=== PATIENT | male | born 1985 | race Caucasian/White ===

== ENCOUNTER → 2018-06-22 13:42 | Outpatient (CLI) | payer BC, SELFPAY ==
--- NOTE | 2018-06-22 | DI.CT.S_ITS ---
PROCEDURE: CT ABDOMEN WO/W CON INDICATIONS: RENAL INJURY TECHNIQUE: Optional 5 mm thick noncontrast images acquired from the diaphragm to the iliac crests. After the administration of intravenous contrast, 5 mm thick images again acquired from the diaphragm to the iliac crests in the arterial and urographic phases. 5 mm thick coronal and sagittal reformats were then acquired. For radiation dose reduction, the following was used: automated exposure control, adjustment of mA and/or kV according to patient size. COMPARISON: None. FINDINGS: Image quality: Excellent. Lung bases: There is a 3 mm nodule in the right major fissure.. Heart size is normal. Genitourinary: There are multifocal site lacerations and contusions of right kidney with a large perinephric hematoma. A fracture is noted traversing through the mid right kidney. There is no definitive contrast extravasation to suggest active bleeding. The left kidney is normal. Other solid organs: Liver is normal in size and enhancement. Gallbladder is normal. Biliary system is non dilated. Pancreas enhances normally. Spleen is normal in size and enhancement. No adrenal nodules. Peritoneum and bowel: Unenhanced bowel loops are normal in wall thickness and caliber. No free fluid or air. Nodes and vessels: No retroperitoneal or mesenteric adenopathy by size criteria. Aorta and inferior vena cava are normal in caliber. Bones: No suspicious bony lesions. No vertebral body compression fractures. Miscellaneous: No ventral hernias. IMPRESSION: 1. Right renal fracture with multi-focal lacerations and contusions. A large perinephric hematoma is present. No active extravasation of contrast to suggest active bleed. 2. Normal left kidney. 3. A 3 mm lung nodule in the right major fissure. Please see enclosed followup recommendation. Fleischner Society criteria for SOLID lung nodule followup. Nodule size (mm)Low-risk patientHigh-risk patient?4No follow-up neededFollow-up at 12 mo; if no change, no further follow-up>[id number] CT at 12 mo; if no change, no further follow-up needed.Initial follow-up CT at 6-12 mo, then 18-24 mo if no change. >6-8Initial follow-up CT at 6-12 mo, then 18-24 mo if no change. Initial follow-up CT at 3-6 mo, then 9-12 mo and 24 mo if no change. >8Follow-up CT at 3, 9, 24 mo. Or PET and/or biopsy.Same as for low-risk pts. Dictated by: Katelin Rivero M.D. on 06/22/2018 at 17:06 Transcribed by: FLORI on 06/22/2018 at 17:14 Approved by: Katelin Rivero M.D. on 06/23/2018 at 9:59
== END ==
PROVIDERS: PCP Family Medicine; Visit Provider Specialist
DX: S37.031A Laceration of right kidney, unspecified degree, initial encounter (principal); S37.011A Minor contusion of right kidney, initial encounter; R91.1 Solitary pulmonary nodule
CPT/HCPCS: 74170; Q9967

== ENCOUNTER → 2018-07-14 07:48 | Outpatient (CLI) | payer OTHER, SELFPAY ==
--- NOTE | 2018-07-14 | DI.CT.S_ITS ---
PROCEDURE: CT ABDOMEN WO/W CON INDICATIONS: RENAL INJURY - RIGHT SIDED TECHNIQUE: Optional 5 mm thick noncontrast images acquired from the diaphragm to the iliac crests. After the administration of intravenous contrast, 5 mm thick images again acquired from the diaphragm to the iliac crests in the arterial and urographic phases. 5 mm thick coronal and sagittal reformats were then acquired. For radiation dose reduction, the following was used: automated exposure control, adjustment of mA and/or kV according to patient size. COMPARISON: [facility], CT, CT ABDOMEN WO/W CON, 06/22/2018, 13:49. FINDINGS: Image quality: Excellent. Lung bases: Lung bases are clear. Previously identified nodule is not imaged in the current study due to differences in field of view. Heart size is normal. Genitourinary: Multiple right renal lacerations and contusions are redemonstrated which have become less conspicuous in the interval since prior exam obtained 06/22/2018 compatible interval healing. Right perinephric fluid collection has decreased in size compared to 06/22/2018 compatible with resolving hematoma/urinoma. Delayed images demonstrate extravasation of contrast material into the right perinephric fluid collection consistent with right renal calyceal laceration. Left kidney remains normal in appearance. No hydronephrosis identified. Other solid organs: Liver is normal in size and enhancement. Gallbladder is within normal limits. Biliary system is non dilated. Pancreas enhances normally. Spleen is normal in size and enhancement. No adrenal nodules. Peritoneum and bowel: Unenhanced bowel loops are normal in wall thickness and caliber. No free fluid or air. Nodes and vessels: No retroperitoneal or mesenteric adenopathy by size criteria. Aorta and inferior vena cava are normal in caliber. Bones: No suspicious bony lesions. No vertebral body compression fractures. Miscellaneous: No ventral hernias. IMPRESSION: 1. Multiple right renal contusions and lacerations decreased in conspicuity compared to 06/22/2018 compatible with interval healing. 2. Right renal perinephric hematoma/urinoma decreased in size compared to 06/22/2018. 3. Delayed images demonstrate extension of contrast material into the right perinephric fluid collection compatible with laceration of a right anterior upper pole renal calyx and right posterior midpole renal calyx. Dictated by: Sydnee Lazaro MD, PhD on 07/14/2018 at 9:28 Approved by: Sydnee Lazaro MD, PhD on 07/14/2018 at 9:50
== END ==
PROVIDERS: PCP Family Medicine; Visit Provider Specialist
DX: S37.031D Laceration of right kidney, unspecified degree, subsequent encounter (principal)
CPT/HCPCS: 74170; Q9967

== ENCOUNTER → 2018-09-12 06:51 | Outpatient (CLI) | payer OTHER, SELFPAY ==
--- NOTE | 2018-09-12 | DI.CT.S_ITS ---
PROCEDURE: CT ABDOMEN WWO PELVIS W INDICATIONS: INJURY OF RIGHT KIDNEY TECHNIQUE: After the administration of oral contrast, 5 mm thick sections acquired from the diaphragms to the iliac crests. After the administration of intravenous contrast, 5 mm thick sections acquired from the diaphragms to the symphysis. 5 mm thick coronal reformats were acquired. For radiation dose reduction, the following was used: automated exposure control, adjustment of mA and/or kV according to patient size. COMPARISON: [facility], CT, CT ABDOMEN WO/W CON, 07/14/2018, 7:51. [facility], CT, CT ABDOMEN WO/W CON, 06/22/2018, 13:49. FINDINGS: Image quality: Excellent. ABDOMEN: Lung bases: Lung bases are clear. Heart size is normal. Solid organs: Liver is normal in size and enhancement. Gallbladder is partially collapsed at the time of this study. Biliary system is non-dilated. Pancreas enhances normally. Spleen is normal in size and enhancement. No adrenal nodules. The right kidney demonstrates focal areas of poor enhancement, which are minimally improved compared to the prior examination. A fracture cleft can be seen along the mid aspect of the right kidney, which is best demonstrated on coronal images. The fracture cleft is less clearly defined on the current study than on the prior, consistent with healing change. There is a minimal to mild amount resolving hemorrhage seen surrounding the right kidney, which is clearly improved compared to the prior examination. The left kidney demonstrates an unremarkable appearance. No hydronephrosis can be seen on either side. On precontrast imaging, no stones are seen. When filled with contrast, the renal calyces demonstrate a normal appearance. On the delayed images, there is no longer seen extravasation of opacified urine. No ureteral abnormality can be seen. Bowel and peritoneum: Stomach, small and large bowel loops are normal in caliber and wall thickness. No free fluid or air. Incidental note is made of a normal-appearing appendix. Nodes and vessels: No retroperitoneal or mesenteric adenopathy by size criteria. Aorta and inferior vena are normal in caliber. Miscellaneous: No ventral hernias. PELVIS: Genitourinary: Bladder wall thickness is normal. Miscellaneous: No inguinal hernias or adenopathy. Bones: No suspicious bony lesions. No vertebral body compression fractures. Mild levoconvex scoliotic curvature is noted. Focal L5-S1 degenerative change can be seen. IMPRESSION: Right kidney contusions and fracture cleft, which are improved compared to the prior examination. Resolving right perinephric hematoma, which is clearly improved compared to the prior examination. No extravasation of opacified urine can be seen on the delayed images on the current study. Incidental note is made of: Levoconvex scoliotic curvature Focal L5-S1 degenerative change Dictated by: Antoine Barreto M.D. on 09/12/2018 at 8:22 Approved by: Antoine Barreto M.D. on 09/12/2018 at 8:32
== END ==
PROVIDERS: PCP Family Medicine; Visit Provider Specialist
DX: S37.011D Minor contusion of right kidney, subsequent encounter (principal)
CPT/HCPCS: 74178; Q9967

== ENCOUNTER → 2024-06-28 14:38 | Outpatient (CLI) | payer OTHER, SELFPAY ==
--- NOTE | 2024-06-28 14:41 | DI.RAD.S_ITS ---
PROCEDURE: XR KNEE LT 3V INDICATIONS: arthritis TECHNIQUE: 3 views of the knee were acquired. COMPARISON: None. FINDINGS: Bones: There are no osseous abnormalities. Joints: The tibialfemoral and patellofemoral joints are normal in width and alignment without arthritic change. . There are no effusions. Soft tissues: Normal IMPRESSION: Normal knee. Dictated by: Isaias Granados M.D. on 06/29/2024 at 8:15 Approved by: Isaias Granados M.D. on 06/29/2024 at 8:15
--- NOTE | 2024-06-28 14:41 | DI.RAD.S_ITS ---
PROCEDURE: XR THORACIC SPINE 2V INDICATIONS: arthritis TECHNIQUE: 3 views of the thoracic spine were acquired. COMPARISON: None. FINDINGS: Thoracic spine curvature and alignment: Minimal slight rightward curve lower thoracic spine appreciated. l. Bones: There are no osseous abnormalities. Disc spaces: Normal in height without significant degeneration. Intervertebral foramen: Grossly normal in width. Soft tissues: No soft tissue swelling, calcification or mass. IMPRESSION: Normal thoracic spine Dictated by: Isaias Granados M.D. on 06/29/2024 at 8:17 Approved by: Isaias Granados M.D. on 06/29/2024 at 8:18
--- NOTE | 2024-06-28 14:41 | DI.RAD.S_ITS ---
PROCEDURE: XR LUMBAR SPINE 2-3V INDICATIONS: arthritis TECHNIQUE: 3 views of the lumbar spine were acquired. COMPARISON: None. FINDINGS: Lumbar spine curvature and alignment: Chronic bilateral L5-S1 spondylolysis with grade 1 spondylolisthesis features 5 mm of L5 anterior subluxation. Bones: There are no osseous abnormalities. Disc spaces: Normal in height without significant degeneration. Intervertebral foramen: Grossly normal in width. Soft tissues: No soft tissue swelling, calcification or mass. IMPRESSION: Chronic bilateral L5-S1 spondylolysis with grade 1 spondylolisthesis. Dictated by: Isaias Granados M.D. on 06/29/2024 at 8:16 Approved by: Isaias Granados M.D. on 06/29/2024 at 8:17
--- NOTE | 2024-06-28 14:41 | DI.RAD.S_ITS ---
PROCEDURE: XR KNEE RT 3V INDICATIONS: arthritis TECHNIQUE: 3 views of the knee were acquired. COMPARISON: None. FINDINGS: Bones: There are no osseous abnormalities. Joints: The tibialfemoral and patellofemoral joints are normal in width and alignment without arthritic change. . There are no effusions. Soft tissues: Normal IMPRESSION: Normal knee. Dictated by: Isaias Granados M.D. on 06/29/2024 at 8:01 Approved by: Isaias Granados M.D. on 06/29/2024 at 8:02
--- NOTE | 2024-06-28 14:41 | DI.RAD.S_ITS ---
PROCEDURE: XR HIP W PEL IF DONE TESS MIN 4V INDICATIONS: arthritis TECHNIQUE: AP pelvis with lateral view(s) of the hip(s). COMPARISON: None. 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 Enlarged L5 transverse processes. 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 on 06/29/2024 at 8:19 Approved by: Isaias Granados M.D. on 06/29/2024 at 8:21
== END ==
LOC: RAD 14:39
PROVIDERS: PCP Physician Assistant; Referring Provider Chiropractor; Visit Provider Chiropractor
DX: M13.80 Other specified arthritis, unspecified site (principal); M43.17 Spondylolisthesis, lumbosacral region
CPT/HCPCS: 72070; 72100; 73522; 73562